=== PATIENT | male | born 1945 | race Caucasian/White ===

== ENCOUNTER 2017-05-05 23:50 | Inpatient (IN) | payer MEDICARE ==
[2017-05-06] MEDS ORDERED: Aspirin Low Dose CHEW TAB* 81 MG PO ONE (00:27)
[2017-05-06 01:46] LABS: Hematocrit 41 % (42-52); Hemoglobin 13.6 g/dl (14.0-18.0); Mean Corpuscular HGB Conc 33 g/dl (31-36); Mean Corpuscular Hemoglobin 32 pg (27-31); Mean Corpuscular Volume 96 fL (80-94); Mean Platelet Volume 8 um3 (7.4-10.4); Red Blood Count 4.26 10^6/ul (4.0-5.4); Red Cell Distribution Width 14 % (10.5-15); White Blood Count 7.9 10^3/ul (3.5-10.8)
[2017-05-06 02:01] LABS: Calcium 9.7 mg/dL (8.6-10.3); EGFR Non-African American 59.9 (>60); Total Bilirubin 0.5 mg/dL (0.2-1.0)
[2017-05-06 02:08] LABS: Troponin I 1.65 ng/mL (<0.04)
[2017-05-06] MEDS ORDERED: Acetaminophen TAB* 325 MG PO PRN (02:16)
[2017-05-06] MEDS ORDERED: CMCS: Melatonin (NF) 3 MG TAB PO PRN (02:16)
[2017-05-06] MEDS ORDERED: Morphine INJ* 2 MG/ML 1 ML SYRINGE IV PRN (02:16)
[2017-05-06] MEDS ORDERED: Ondansetron INJ* 2 MG/ML VIAL IV PRN (02:17)
--- NOTE | 2017-05-06 02:21 | HP ---
H&P (Free Text) History and Physical: PCP: Jackie Ladd MD Date/Time of Evaluation: 05/06/2017 0220 CC: chest pain HPI: Mr West is a 72YO male HX HTN who was in his usual state of health upon awakening 05/05, but around 1030 developed sudden onset of "indigestion" radiating to B arms which lasted less than an hour before subsiding. He then played a full round of golf without limitations, but had waxing and waning discomfort that was relieved somewhat by drinking sparking water and belching. He denies associated SOB, palpitations, light-headedness, and N/V. He denies exacerbating factors. He went to bed around 2200 and awoke due to return of the chest discomfort around 2315 prompting him to present for evaluation. Work up is notable for an ECG showing NSR rate 75, frequent PVCs, & mild ST depressions in V3-6, I, & II. Troponin is 1.65. He is currently pain and symptom free. PMedHx HTN "allergies" Ambulatory Orders Nursing to reconcile. Cialis 5 mg PO DAILY PRN 01/10/15 Losartan TAB* 50 mg PO DAILY 01/10/15 Multiple Vitamin [Multivitamins] 1 cap PO DAILY 01/10/[address] [place] [address]-3 Fatty Acids [Fish Oil 1200 mg] 1 cap PO DAILY 01/10/15 Naproxen TAB* [Naprosyn TAB*] 500 mg PO Q8H PRN 01/12/15 Aspirin 650 mg PO Q8H PRN 08/06/16 HYDROcodone/ACETAMIN 5-325 MG* [[place] 5-325 TAB*] 1 tab PO Q4H PRN #30 tab MDD 6 08/06/16 Ibuprofen 400 mg PO Q6H PRN 08/06/16 Levofloxacin [Levaquin] 500 mg PO DAILY #7 tab 08/06/16 Prednisone [Deltasone] 20 mg PO DAILY #7 tab 08/06/16 HYDROcodone/ACET. 7.5/325 LIQ* [Lortab Elixir 7.5/325 per 15 ml *] 15 ml PO Q4H PRN #450 ml MDD 6 08/20/16 Ondansetron HCl [Zofran] 4 mg PO Q6HR PRN #20 tab 11/16/16 Allergies No Known Allergies Allergy (Verified 05/06/17 00:06) PSurgHx OU cataract extractions sinus surgery appendectomy SocHx: quit >30years ago with a >10PYHX, 1-2 alcoholic drinks daily, no recreational drugs; lives with his ; retired; full code status FamHx: Mother passed in her 90s with Alzheimer's. Father passed in his 80s 2nd unknown type of cancer, HX CAD ROS: as above, otherwise reviewed and all were negative Constitutional: NAD, normally developed, obese white male vitals: Vital Signs Temp 36.6 C 05/05/17 23:52 Pulse 65 05/06/17 02:00 Resp 23 05/06/17 02:00 BP 154/87 05/06/17 01:00 Pulse Ox 95 05/06/17 02:00 Intake & Output 05/05/17 05/05/17 05/06/17 11:59 23:59 11:59 Weight 106.594 kg HEENM: atraumatic; sclera/conjunctiva: non-icteric/clear; hearing: clinically intact; oropharynx: clear, mucosa moist Neck: soft tissue: non-tender; thyroid: normal Pulmonary: clear to auscultation bilaterally, good aeration, no accessory muscle use CV: RR/RR, normal S1S2, no carotid bruit, no jugular venous distention, 2+ B DP/ PT, no edema Abdominal: soft, non-distended, non-tender, no rebound/guarding/rigidity, normoactive bowel sounds, no hepatosplenomegaly or masses, no costovertebral angle tenderness Musculoskeletal: general: grossly intact; gait: stable Integumental: normal appearance and texture of exposed skin Psychiatric orientation: AA&O to PPS affect: calm mood: cooperative eye contact: good content: reliable responses: timely insight: good Testing: Lab Results 05/06/17 05/06/17 Range/Units 01:30 01:30 WBC 7.9 (3.5-10.8) 10^3/ul RBC 4.26 (4.0-5.4) 10^6/ul Hgb 13.6 L (14.0-18.0) g/dl Hct 41 L (42-52) % MCV 96 H (80-94) fL MCH 32 H (27-31) pg MCHC 33 (31-36) g/dl RDW 14 (10.5-15) % Plt Count 232 (150-450) 10^3/ul MPV 8 (7.4-10.4) um3 Neut % (Auto) 60.8 (38-83) % Lymph % (Auto) 24.9 L (25-47) % Page % (Auto) 9.9 H (1-9) % Eos % (Auto) 3.9 (0-6) % Baso % (Auto) 0.5 (0-2) % Absolute Neuts (auto) 4.8 (1.5-7.7) 10^3/ul Absolute Lymphs (auto) 2.0 (1.0-4.8) 10^3/ul Absolute Monos (auto) 0.8 (0-0.8) 10^3/ul Absolute Eos (auto) 0.3 (0-0.6) 10^3/ul Absolute Basos (auto) 0 (0-0.2) 10^3/ul Absolute Nucleated RBC 0 10^3/ul Nucleated RBC % 0.1 Sodium 135 (133-145) mmol/L Potassium 4.0 (3.5-5.0) mmol/L Chloride 102 (101-111) mmol/L Carbon Dioxide 25 (22-32) mmol/L Anion Gap 8 (2-11) mmol/L BUN 24 (6-24) mg/dL Creatinine 1.20 H (0.67-1.17) mg/dL Est GFR ( Amer) 77.0 (>60) Est GFR (Non-Af Amer) 59.9 (>60) BUN/Creatinine Ratio 20.0 (8-20) Glucose 115 H (70-100) mg/dL Calcium 9.7 (8.6-10.3) mg/dL Total Bilirubin 0.50 (0.2-1.0) mg/dL AST 33 (13-39) U/L ALT 20 (7-52) U/L Alkaline Phosphatase 56 (34-104) U/L Total Creatine Kinase 275 H (10-223) U/L Troponin I 1.65 H* (<0.04) ng/mL Total Protein 7.0 (6.4-8.9) g/dL Albumin 4.0 (3.2-5.2) g/dL Globulin 3.0 (2-4) g/dL Albumin/Globulin Ratio 1.3 (1-3) ECG, personally reviewed: NSR rate 75, frequent PVCs, & mild ST depressions in V3-6, I, & II CXR, personally reviewed: no acute process Impression: 72M presenting with NSTEMI DIAGNOSIS & PLAN Primary NSTEMI : aspirin : metoprolol : heparin GTT : supplemental oxygen : trend troponin : consult cardiology in AM : supportive care Secondary HTN : continue losarton once reconciled : add metoprolol as above Admission Rational: inpatient for management of AMI DVTp: heparin GTT Code Status: full HCP:
[2017-05-06] MEDS ORDERED: Heparin DRIP 25,000 UNITS(*) 25,000 UNITS/500 ML BAG IVPB SCH (02:30)
[2017-05-06] MEDS ORDERED: Heparin VIAL(*) 5000 UNITS/ML VIAL (FIVE THOUSAND) IV PRN (03:07)
[2017-05-06] MEDS: Metoprolol Tartrate TAB* 25 MG PO SCH ×2 (04:18→08:42)
[2017-05-06 05:07] LABS: Hematocrit 40 % (42-52); Hemoglobin 13.5 g/dl (14.0-18.0); Mean Corpuscular HGB Conc 34 g/dl (31-36); Mean Corpuscular Hemoglobin 33 pg (27-31); Mean Corpuscular Volume 96 fL (80-94); Mean Platelet Volume 7 um3 (7.4-10.4); Red Blood Count 4.15 10^6/ul (4.0-5.4); Red Cell Distribution Width 14 % (10.5-15); White Blood Count 9.2 10^3/ul (3.5-10.8)
[2017-05-06 05:22] LABS: BUN/Creatinine Ratio 19.7 (8-20); Calcium 9.5 mg/dL (8.6-10.3); EGFR African American 75.5 (>60); EGFR Non-African American 58.7 (>60); HDL Cholesterol 57.4 mg/dL
[2017-05-06 05:28] LABS: Troponin I 2.58 ng/mL (<0.04)
[2017-05-06] MEDS ORDERED: Omeprazole CAP* 20 MG PO SCH (06:00)
[2017-05-06] MEDS: Atorvastatin* 80 MG TAB PO SCH ×2 (07:09→08:41)
--- NOTE | 2017-05-06 08:04 | RAD ---
Indication: Chest pain. 2 views of the chest including dual energy PA views demonstrate no mediastinal shift. Heart is of normal size and configuration. Lung gloria demonstrate no pleural fluid, pneumonia or pneumothorax. No alveolar consolidation is noted. IMPRESSION: No active cardiopulmonary disease is noted.
[2017-05-06] MEDS ORDERED: Losartan TAB* 25 MG PO SCH (09:00)
[2017-05-06] MEDS ORDERED: Docusate CAP* 100 MG PO SCH (09:00)
--- NOTE | 2017-05-06 09:49 | ECHO ---
Patient: ABDIEL CASAREZ [facility] Rec#: [id number] : 1945 Date: 05/06/2017 Age: 72y Height: 180.34 cm / 71.0 in Weight: 106.14 kg / 233.9 lbs Sex: M BSA: 2.25 Room#: 448 Admit Date#: 05/06/2017 Type: Inpatient Referring: Eric Washington MD Reading: Linda Cunningham MD Prepress Manager: Emma Reynolds,SAHARACS,RDMS CC: Chapo Ladd MD Transthoracic Echocardiogram Indication: CP BP: 175/89 HR: 55 Rhythm: Bradycardia Findings History: HTN, former smoker Technical Comments: The study quality is good. Completed 08 Left Ventricle: The left ventricular chamber size is normal. Mild concentric left ventricular hypertrophy is observed. Basal interventricular septum shows moderate thickening. There is a focal wall motion abnormality present.Relative hypokinesis seen in the posterior wall on 3 chamber view and apical portion of the lateral wall on 4 chamber view. The estimated ejection fraction is 45-50%. Abnormal left ventricular diastolic filling is observed, consistent with impaired relaxation. Left Atrium: The left atrium is moderately dilated. Right Ventricle: The right ventricular cavity size is normal. The right ventricle wall thickness is mildly increased. The right ventricular free wall has increased brightness. The right ventricular global systolic function is normal. Right Atrium: The right atrium is slightly dilated. Aortic Valve: The aortic valve is trileaflet. The aortic valve leaflets are mildly thickened. There is aortic annular calcification. There is no evidence of aortic regurgitation. There is mild aortic stenosis. The mean gradient of the aortic valve is 11 mmHg. The aortic valve area, by peak velocities, is calculated at 1.7 cm2. Mitral Valve: There is mitral annular calcification. The mitral valve leaflets are mildly thickened. There is a trace of mitral regurgitation. There is mild mitral stenosis. Tricuspid Valve: The tricuspid valve leaflets are normal. There is trace tricuspid regurgitation. Unable to estimate the right ventricular systolic pressure. Pulmonic Valve: There is no evidence of pulmonic valve thickening. There is no evidence of pulmonic regurgitation. Pericardium: There is no significant pericardial effusion. Aorta: The aortic root appears normal. There is no dilatation of the aortic arch. Pulmonary Artery: The main pulmonary artery appears normal. Venous: The inferior vena cava appears normal in size. There is a greater than 50% respiratory change in the inferior vena cava dimension. Conclusions Mild concentric left ventricular hypertrophy is observed. Relative hypokinesis seen in the posterior wall on 3 chamber view and apical portion of the lateral wall on 4 chamber view. Abnormal left ventricular diastolic filling is observed, consistent with impaired relaxation. The estimated ejection fraction is 45-50%. The right ventricle wall thickness is mildly increased and systolic function is normal. There is mild aortic stenosis: mean gradient 11 mmHg, OCTAVIO 1.7 cm2 by peak velocity. There is mitral annular calcification. There is a trace of mitral regurgitation. There is trace tricuspid regurgitation. No prior echo to compare. Measurements Name Value Normal Range RVIDd (AP) 2D 2.7 cm (0.9 - 2.6) RVDdMajor (2D) 3 cm (2.2 - 4.4) RAd ISD 4CH 5.4 cm (3.4 - 4.9) RA (A4C)W 3.4 cm (2.9 - 4.6) IVSd (2D) 1.5 cm (0.6 - 1) LVPWd (2D) 1.3 cm (0.6 - 1) LVIDd (2D) 4.7 cm (3.6 - 5.4) LVIDs (2D) 2.6 cm - LV FS (2D) 43 % (25 - 45) Aortic Annulus 2.3 cm (1.4 - 2.6) Ao root diameter (2D) 3.1 cm (2.1 - 3.5) Ascending Ao 3.4 cm (2.1 - 3.4) Aortic arch 3.2 cm (1.8 - 3.4) LA dimension (AP) 2D 4.9 cm (2.3 - 3.8) LAd ISD 4CH 5.9 cm (2.9 - 5.3) LA ISD 4CH W 5 cm (2.5 - 4.5) Name Value Normal Range LA ESV SP 4CH (A/L) 111.61 ml - LA ESV SP 2CH (A/L) 90.59 ml - LA ESV BP (A/L) 104.52 ml - LA ESV BP (A/L) index 46 ml/m2 - LA ESV SP 4CH (MOD) 102.97 ml - LA ESV SP 2CH (MOD) 86.36 ml - Name Value Normal Range MV E-wave Vmax 1.1 m/sec - MV deceleration time 235 msec - MV A-wave Vmax 1.3 m/sec - MV E:A ratio 0.8 ratio - P. vein S-wave Vmax 0.6 m/sec - P. vein D-wave Vmax 0.4 m/sec - P. vein S:D Vmax ratio 1.7 ratio - P. vein A-wave duration 156 msec - LV septal e' Vmax 0.05 m/sec - LV lateral e' Vmax 0.05 m/sec - LV E:e' septal ratio 22 ratio - LV E:e' lateral ratio 22 ratio - Name Value Normal Range AV Vmax 2.2 m/sec - AV VTI 50.4 cm - AV peak gradient 19 mmHg - AV mean gradient 11 mmHg - LVOT diameter 2 cm - LVOT Vmax 1.2 m/sec - LVOT VTI 31.6 cm - LVOT peak gradient 6 mmHg - LVOT mean gradient 3.1 mmHg - DOI (VTI) 0.6 ratio - OCTAVIO (continuity Vmax) 1.7 cm2 - OCTAVIO (continuity VTI) 2 cm2 - JÚNIOR Vmax 0.6 m/sec - Name Value Normal Range MV Vmax 1.3 m/sec - MV VTI 47.8 cm - MV peak gradient 7 mmHg - MV mean gradient 2.1 mmHg - MV PHT 75 msec - MVA (PHT) 2.9 cm2 - MVA (continuity VTI) 2.1 cm2 - Name Value Normal Range RAP 8 mmHg - IVC diameter 2.1 cm - Name Value Normal Range PV Vmax 0.7 m/sec - PV peak gradient 2 mmHg -
[2017-05-06] MEDS ORDERED: NS 0.9% 1000 ML* 1,000 ML IV SCH ×2 (10:15→11:30)
[2017-05-06] MEDS ORDERED: fentaNYL* 50 MCG/ML 2 ML VIAL (100 MCG VIAL) ONE (10:21)
[2017-05-06] MEDS ORDERED: VERAPAMIL 2.5 MG/ML 4 ML VIAL ONE (10:21)
[2017-05-06] MEDS ORDERED: Heparin 2 UNITS/ML IVPREMIX* 2,000 ML IV ONE (10:21)
[2017-05-06] MEDS ORDERED: nitroGLYCERIN DRIP* 250 ML ONE (10:21)
[2017-05-06] MEDS ORDERED: Heparin(*) 1000 UNIT/ML 10 ML VIAL CATH LAB IV ONE (10:21)
[2017-05-06] MEDS ORDERED: Midazolam* 1 MG/ML 5 ML VIAL (5 MG) ONE (10:21)
[2017-05-06] MEDS ORDERED: Iodixanol* (CONTRAST) 320 MG/ML 100 ML SDV ONE (10:22)
[2017-05-06] MEDS ORDERED: Lidocaine 1% INJ* 10 MG/ML 30 ML SDV ONE (10:22)
--- NOTE | 2017-05-06 13:32 | TRS ---
CC: Dr. Ladd; Dr. Vázquez; Dr. Constantin Antoine, Cardiothoracic Surgeon, [facility] * TRANSFER SUMMARY: DATE OF ADMISSION: 05/06/17 DATE OF TRANSFER: 05/06/17 PRIMARY CARE PROVIDER: Dr. Ladd. REASON FOR TRANSFER: Severe 3-vessel coronary artery disease. SECONDARY DIAGNOSES: 1. Non-ST elevation myocardial infarction, which is the current presentation of this patient to the hospital. 2. History of hypertension. MEDICATIONS AT TRANSFER: Include: 1. Heparin drip. 2. Aspirin 81 mg daily. 3. Atorvastatin 80 mg daily. 4. Colace 200 mg b.i.d. 5. Losartan 50 mg daily. 6. mg at bedtime. 7. Metoprolol tartrate 12.5 mg b.i.d. 8. Normal saline 100 mL an hour. CONSULTATIONS DURING THE HOSPITAL STAY: Included: 1. Dr. Cunningham from Cardiology. 2. Dr. Vázquez from Interventional Cardiology. PROCEDURES OBTAINED DURING THE HOSPITAL STAY: Included: 1. Cardiac catheterization performed by Dr. Vázquez on 05/06/17, which showed severe proximal LAD disease and 3-vessel coronary artery disease. 2. Transthoracic echocardiogram on 05/06/17, showed mild concentric LVH with relative hypokinesis seen in the posterior wall and apical portion of the lateral wall. Impaired relaxation. EF of 45% to 50%. The right ventricular wall thickness is mildly increased, the systolic function is normal. There was mild aortic stenosis with mean gradient of 11 mmHg. Mild mitral annular calcification. There was trace of mitral regurgitation and trace tricuspid regurgitation. LABORATORY DATA: On 05/06/17, showed white blood cell count of 9.2, hemoglobin 13.5, hematocrit 40, MCV 96, and platelets of . Sodium was 136, potassium of 4.0, chloride 103, carbon dioxide 26, BUN 24, creatinine 1.22. Troponin of 2.5. Cholesterol total of 194 and triglycerides of 36, LDL of 129, and HDL of 57. HOSPITALIZATION COURSE: Viral West is a 72-year-old male, who presented to the hospital with complaints of chest pain. The patient stated that he played golf all day on 05/05/17 and his epigastric lower sternal pressure would occur off and on and it was not related to exercise. He stated that he went to bed at 10 p.m. but he woke up once again with pain and indigestion in the middle of the night and that prompted him to come in to the ED for evaluation. Here, he was noted to have non- ST elevation IA with a troponin over 1 and EKG showing no ST elevation. The patient has been admitted to the telemetry floor on heparin drip. Dr. Vázquez performed cardiac catheterization and noted the patient to have severe coronary artery disease and in need to transfer to a tertiary care center for further evaluation. Dr. Vázquez discussed the case with Dr. Constantin Antoine from [facility], who kindly accepted the patient for transfer. The patient is going to be transferred today. PHYSICAL EXAMINATION: At the time of transfer, blood pressure of 138/77, heart rate of 56 and regular, respiratory rate 22, oxygen saturation 96% on room air, and temperature of 99.0. General: The patient is a very pleasant 72-year-old male, who is in no acute distress. Alert, awake, and oriented x3. HEENT: Head : Atraumatic, normocephalic. Eyes: Pupils are equal and reactive to light and accommodation. Oropharynx is clear. Mucosa moist. Neck: Supple. No JVD. No bruits bilaterally. Cardiovascular: Regular rate and rhythm. No murmur. Respiratory: Clear to auscultation bilaterally. Abdomen: Soft, nontender. Bowel sounds are present in all 4 quadrants. Extremities: There is no edema. Pulses are +2 bilaterally. No clubbing or cyanosis. The patient still has pressure device in his right wrist since he had a right radial port for his cardiac catheterization. Please note this is a short summary of the patient's hospitalization. Please refer to further medical records for details. TIME SPENT: Approximately 32 minutes was spent on the patient's transfer. [id number]/[facility] #: [id number] DENNIS
[2017-05-06 13:57] VITALS: BP 158/86
--- NOTE | 2017-05-06 17:03 | CONS ---
CC: Chapo Ladd MD, and Hospitalist Service. CONSULTATION REPORT: DATE OF CONSULT: 05/06/17 REASON FOR CONSULTATION: Elevated troponins and chest discomfort. HISTORY OF PRESENT ILLNESS: Mr. West is a 72-year-old gentleman with no prior cardiac history. Yesterday, the day of admission, the patient awoke feeling well, and he and his went on the usual walk of 30 to 40 minutes. After the walk, he developed what felt like indigestion in the epigastric area, but discomfort radiated to the shoulders bilaterally. He has had occasional indigestion before that will clear with belching, but this persisted all day. He did go and play golf, but when he went to bed that night, it worsened lying down, he came to the emergency room for evaluation. In the emergency department, his ECG had some mild ST changes and PVC's and his troponin was elevated. He has been medically managed overnight with aspirin, heparin drip, beta blockers and statin, in addition to his outpatient losartan. Currently, the patient still has some epigastric awareness, but no actual pain or pressure and shoulder discomfort has resolved completely. His only new medication that was added according to the patient was an allergy medicine recently for some rhinorrhea. PAST MEDICAL HISTORY: The patient has a past medical history of: 1. Hypertension. 2. Environmental allergies. 3. Hyperglycemia, prediabetes, and he is overweight. PAST SURGICAL HISTORY: 1. Appendectomy in the distant past. 2. Sinus surgery relatively recently with no complications. 3. Cataract extractions. OUTPATIENT MEDICATIONS: Based on verbal report with the patient include: 1. Losartan 50 mg a day. 2. His new prescription allergy medicine, name unknown. INPATIENT MEDICATIONS: Include: 1. Tylenol p.r.n. 2. Aspirin 81 mg a day. 3. Lipitor 80 mg a day. 4. Colace. 5. Cozaar 50 mg a day. 6. Melatonin 3 mg q.h.s. p.r.n. 7. Lopressor 12.5 mg b.i.d. 8. Morphine p.r.n. 9. Prilosec 20 mg a day. 10. Zofran p.r.n. 11. Sodium chloride. 12. Heparin drip. ALLERGIES: He has no known medication allergies. SOCIAL HISTORY: The patient is with a supportive . Stopped smoking over 30 years ago. No history of recreational drug use and 1 to 2 alcoholic beverages a day. FAMILY HISTORY: Significant, in that his father had coronary disease, the patient believes in his 50's, but he in his 80's. Mother in her 90's with no history of coronary or vascular disease. REVIEW OF SYSTEMS: A 17-point review of systems performed, pertinent positives included epigastric and chest discomfort following exertion, recent rhinorrhea, consistent with his seasonal allergies. Pertinent negatives include no orthopnea, PND, no recent change of bowel or bladder habits, no hematuria or dysuria. No recent change in weight. No recent travel. No recent fevers, chills, sweats. And a new medication added as above. He denies using any over- the-counter medication, such as Sudafed. All other review of systems unremarkable. PHYSICAL EXAMINATION: On exam, the patient is 5 foot 11 inches, weighs 234 pounds with a BMI of 32. Vitals on arrival to the emergency department, blood pressure 190/90, pulse was 75, he was afebrile, oxygen saturation 100% on room air. Current vitals: Blood pressure 138/77, pulse is 56, temperature 99 degrees Fahrenheit, oxygen saturation 96% on room air. General appearance: Obese, older gentleman lying at 30 degrees in no acute distress. Psychologically, calm , cooperative, and pleasant. Neurologically, awake, alert, and oriented to person, place, and time. Cranial nerves II through XII were intact, grossly normal sensory motor function in the bed. Gait not checked. Skin: Starr, warm, dry. No cyanosis or rashes. HEENT: Pupils are equal and round. Mucous membranes are moist. Neck without appreciable increase in JVP. Good carotid pulses without audible bruits. Breath sounds clear with good effort. No wheezes , rales, or rhonchi. Coronary: S1, S2 regular. I do not appreciate murmurs. Occasional extra systole. Abdomen: Soft. No epigastric discomfort. No hepatomegaly. Femoral pulses are bit hard to find from obesity, but no bruits heard. Distal extremities show a strong 2+ radial pulses that are symmetrical. The lower extremities are warm, well perfused, hard to find distal pulses as well. DIAGNOSTIC STUDIES/LAB DATA: White count 9.2, hemoglobin 13.5, platelets 224, PTT 27.7. Sodium 136, potassium 4.0, chloride 103, bicarb 26, BUN 24, creatinine 1.22, glucose 129. CK on arrival 275. Initial troponin #1, 1.65; troponin #2, 2.58. Lipids, total cholesterol 194, triglycerides 36, LDL cholesterol 129, HDL cholesterol 57. ECG on arrival to the emergency department, the initial ECG from 05/05/17 shows normal sinus rhythm, 75 beats per minute with 2 PVC's. He has mild ST depression in leads II, III, and aVF and subtle ST changes in V2 and V3. ECG number 2 at 7 in the morning, this morning shows normal sinus rhythm 54 beats per minute, QRS axis plus 60, normal AV and IV conduction times and ST changes are resolved and are now normal. Chest x-ray done at midnight showed no acute pulmonary disease. Echocardiogram done this morning showed some relative hypokinesis in the posterior lateral cerna. In summary, Mr. West is a 72-year-old gentleman presenting with non Q wave myocardial infarction with angina like discomfort following exertion, atherosclerotic risks of family history of early atherosclerotic heart disease, borderline dyslipidemia, hypertension, hyperglycemia. The patient has clinically improved with medical management as above, but he still has some epigastric awareness. I recommend cardiac catheterization for this patient with non Q wave myocardial infarction and ongoing subtle symptoms concerning for ongoing ischemia, even though his EKG appears to have normalized. The indications, risks and benefits were discussed with the patient and his including potential complications and they are amenable to proceeding. Additional recommendations will be made pending the results of the study. ADDENDUM: CATH REVEALED TIGHT LEFT MAIN DISEASE AND CAD IN 3 VESSELS. PT REFERRED FOR CABG FOR LM. JM. [id number]/[facility] #: [id number] DENNIS
--- NOTE | 2017-05-07 04:44 | CATH ---
CC: Dr. Ladd; Dr. Cunningham* CATH REPORT: DATE OF CATH: 05/06/17 - ROOM #448 PRIMARY CARE PHYSICIAN: Dr. Ladd. ADMINISTRATIVE ASSISTANT FRONT DESK: Dr. Linda Cunningham. PROCEDURES: Right radial artery access, bilateral selective coronary cineangiography, left heart catheterization. HISTORY: A 72-year-old male with hypertension, CKD stage 3, [id number] infarct with KENDAL score 5. PROCEDURE ACCESS: Right radial artery sheath 6F slender with ultrasound guidance. MEDICATIONS: 1. Subcu lidocaine. 2. IV Versed. 3. IV fentanyl. 4. Heparin 3000 units. 5. Verapamil 3 mg. 6. Nitroglycerin 300 mcg IA. DIAGNOSTIC CATHETERS: 5-F TIG4, 5-FL 3.5. Left heart pressure is measured with TIG catheter. LV-gram not done due to decreased creatinine clearance. HEMODYNAMICS: Initial BP 165/89, LV systolic 105, AO 101 on pullback. At most , 5 to 10 mm or less gradient across the aortic valve. ANGIOGRAPHY: Left main. The left main has a distal hazy 80% stenosis. LAD. The LAD is calcified, moderate size with proximal luminal irregularity, mid LAD at the bifurcation with a large diagonal has an 80% stenosis. Distally , the LAD wraps around the apex and supplies the inferoapical segment. Circumflex. The circumflex is moderate, not dominant, calcified, has a fairly small caliber ramus, which has a proximal 70% stenosis then an 80% stenosis, vessel diameter is probably about 2 mm. There is a large marginal which has a proximal 75% stenosis. RCA. The RCA is calcified, large, dominant with a 50% stenosis at the acute margin, the PDA is moderate followed by a large posterolateral branch. CONCLUSION: 1. Significant left main and three-vessel disease. 2. Trivial aortic valve gradient, if any, on pullback. 3. LV-gram not done due to renal insufficiency. 4. Successful right radial artery access. 5. He will be referred for bypass surgery. 6. On echo, there is relative hypokinesis in the posterolateral wall with LVEF of 45% to 50%, mild aortic stenosis with mean gradient of 11 mmHg. [id number]/[facility] #: [id number] MTDD
[2017-05-07] MEDS ORDERED: Aspirin EC Low Dose* 81 MG TAB.EC PO SCH (09:00)
== END 2017-05-06 15:00 | disposition short-term general hospital (02) | DRG 282 ==
LOC: ED 23:50 → MEDTELE 05-06 02:14
PROVIDERS: ADMIT Hospitalist; ATTEND Internal Medicine
PROC: 4A023N7 Measurement of Cardiac Sampling and Pressure, Left Heart, Percutaneous Approach (ICD-10-PCS; 2017-05-06)
PROC: B2111ZZ Fluoroscopy of Multiple Coronary Arteries using Low Osmolar Contrast (ICD-10-PCS; principal; 2017-05-06 10:00)
DX: I21.4 Non-ST elevation (NSTEMI) myocardial infarction (principal); N18.3 Chronic kidney disease, stage 3 (moderate); I08.3 Combined rheumatic disorders of mitral, aortic and tricuspid valves; E66.9 Obesity, unspecified; R73.03 Prediabetes; E78.5 Hyperlipidemia, unspecified; I25.10 Atherosclerotic heart disease of native coronary artery without angina pectoris; I12.9 Hypertensive chronic kidney disease with stage 1 through stage 4 chronic kidney disease, or unspecified chronic kidney disease; Z98.42 Cataract extraction status, left eye; Z98.41 Cataract extraction status, right eye; Z87.891 Personal history of nicotine dependence; Z82.49 Family history of ischemic heart disease and other diseases of the circulatory system; Z82.0 Family history of epilepsy and other diseases of the nervous system; Z80.9 Family history of malignant neoplasm, unspecified; Z68.32 Body mass index [BMI] 32.0-32.9, adult; Z88.8 Allergy status to other drugs, medicaments and biological substances; Z72.89 Other problems related to lifestyle; Z79.82 Long term (current) use of aspirin
CPT/HCPCS: 36415; 71020; 80048; 80053; 80061; 82550; 82553; 83036; 84484; 85025; 85027; 85610; 85730; 93005; 93306; 93458; 96374; 99156; 99157; 99285; A9270-GY; J1644; J2001; J2250; J3010